=== PATIENT | female | born 1990 | race Caucasian/White ===

== ENCOUNTER → 2017-09-18 12:43 | Outpatient (CLI) | payer SELFPAY ==
[~2017-09-18 12:43] MED LIST: CRYSELLE1 TAB PO; FLAGYL500 MG PO; LEVAQUIN500 MG PO; PHENERGAN25 M1 PO; TYLENOL W/CODEI1 TAB PO; ZOFRAN8 MG PO
[2017-09-20 15:45] VITALS: BMI 26.6
== END | disposition home or self-care (01) ==
LOC: D.CT 12:43
DX: R10.9 Unspecified abdominal pain (principal)

== ENCOUNTER 2017-09-18 15:51 | Emergency (ER) | payer SELFPAY ==
[~2017-09-18] VITALS: Ht 160 cm; Wt 68.2 kg
[2017-09-18 16:21] VITALS: Ht 160 cm; Wt 68.2 kg
[2017-09-18] MEDS ORDERED: CRYSELLE1 TAB PO (16:27)
[2017-09-18] MEDS ORDERED: ZOFRAN8 MG PO (16:27)
[2017-09-18] MEDS ORDERED: FLAGYL500 MG PO (16:27)
[2017-09-18] MEDS ORDERED: TYLENOL W/CODEI1 TAB PO (16:28)
[2017-09-18 16:45] LABS: BASOPHILS 0.3 % (0-2); EOSINOPHILS 0.5 % (0-7); HEMATOCRIT 34.9 % (36.0-48.0); HEMOGLOBIN 11.9 g/dL (12-16); IMMATURE GRANULOCYTES 0.3 % (0-5); LYMPHOCYTES 22.8 % (15-50); MCH 31.6 pg (26.0-34.0); MCHC 34.1 g/dL (31.0-37.0); MCV 92.6 fL (80.0-100.0); MEAN PLATELET VOLUME 10.1 fL (7.4-10.4); MONOCYTES 9.1 % (2-11); PLATELET COUNT 201 10x3/uL (130-400); RBC 3.77 10x6/uL (4.00-5.40); RDW 12.5 % (11.5-14.5); WBC 6.1 10x3/uL (4.8-10.8)
[2017-09-18 17:16] LABS: ALBUMIN 2.7 g/dL (3.4-5.0); ALKALINE PHOSPHATASE 41 U/L (46-116); ALT (SGPT) 14 U/L (10-68); BILIRUBIN - TOTAL 0.36 mg/dL (0.2-1.3); CALC OSMOLALITY 269 mosm/kg (275-300); CARBON DIOXIDE 28.4 mmol/L (21.0-32.0); CHLORIDE - SERUM 102 mmol/L (98-107); CREATININE - SERUM 0.6 mg/dL (0.6-1.3); GLUCOSE 89 mg/dL (74-106); POTASSIUM - SERUM 3.2 mmol/L (3.5-5.1); PROTEIN - SERUM 6.4 g/dL (6.4-8.2); SODIUM 137 mmol/L (136-145); UREA NITROGEN 4 mg/dL (7-18); eGFR NON AFRICAN AMERICAN > 90 mL/min (90-120)
[2017-09-18 17:18] LABS: APPEARANCE CLEAR (CLEAR); COLOR YELLOW (YELLOW)
[2017-09-18 17:19] LABS: BACTERIA FEW /hpf (NONE SEEN); BILIRUBIN NEGATIVE (NEGATIVE); GLUCOSE NEGATIVE (NEGATIVE); KETONE MODERATE mg/dL (NEGATIVE); NITRITE NEGATIVE (NEGATIVE); PROTEIN NEGATIVE (NEGATIVE); RED CELLS - URINE OCC /hpf (0-5); UROBILINOGEN NORMAL (NORMAL); WHITE CELLS - URINE OCC /hpf (0-5)
[2017-09-18 17:28] LABS: AMYLASE - SERUM 34 U/L (25-115); C-REACTIVE PROTEIN 31.7 mg/dL (0.0-0.9); CKMB 1.5 U/L (0.0-3.6); LIPASE 100 U/L (73-393)
[2017-09-18] MEDS ORDERED: LEVAQUIN500 MG PO (20:38)
[2017-09-18] MEDS ORDERED: PHENERGAN25 M1 PO (20:39)
[2017-09-19 05:45] VITALS: BP 112/69
[2017-09-20 15:45] VITALS: Ht 160 cm; Wt 68.2 kg
== END 2017-09-18 22:00 | disposition home or self-care (01) ==
LOC: D.ER 15:51
PROVIDERS: Family Medicine
DX: K52.9 Noninfective gastroenteritis and colitis, unspecified (principal); R19.7 Diarrhea, unspecified; E87.6 Hypokalemia

== ENCOUNTER 2017-09-20 13:56 | Day surgery (SDC) | payer OTHER ==
[~2017-09-20] VITALS: Ht 160 cm; Wt 68.0 kg
--- NOTE | ~2017-09-20 | OP ---
PATIENT NAME: VERA ZAPATA MEDICAL RECORD: [id number] :86 LOCATION:D.OPS ADMISSION DATE: SURGEON: NÉSTOR MEREDITH DO DATE OF OPERATION: 09/20/2017 PROCEDURE: Colonoscopy with biopsy. INDICATION FOR PROCEDURE: Nausea, vomiting, generalized abdominal pain, diarrhea, abdominal imaging that is abnormal, enterocolitis. SCOPE: Olympus video pediatric colonoscope. MEDICATIONS: Propofol 300 mg IV per anesthesia. WITHDRAWAL TIME: 10 minutes. ESTIMATED BLOOD LOSS: Less than 3 mL. COMPLICATIONS: None. FINDINGS: Informed consent was given. The patient was made comfortable with the above medication. After reaching an adequate level of sedation by slow IV push, the patient was placed on her left side. A digital rectal examination was performed and was normal. The endoscope was advanced under direct visualization through the rectum to the terminal ileum. The endoscope was slowly withdrawn and mucosa was carefully examined. The prep quality was excellent. In cecum and ascending colon, there was obvious colitis with visualization of multiple discontinuous superficial ulcerations which ranged in size from 2 mm to 2 cm. The endoscope was advanced into the terminal ileum. In the terminal ileum, there were no obvious ulcerations, but the mucosa did appear somewhat atrophic. Multiple biopsies were taken with cold forceps from the terminal ileum as well as the cecum and the ascending colon. These will be submitted for histopathology. Appearances could be consistent with either Crohn's or infectious etiology. Upon withdrawal further, there was some colitis which advanced into the distal ascending colon, but it stopped by the transverse colon. The remainder of the colon appeared normal. Retroflexion was performed in the rectum with a normal-appearing rectal wall. The endoscope was withdrawn from the patient. The patient tolerated the procedure well and there were no complications. IMPRESSION: 1. Colitis involving cecum and ascending colon. 2. Some atrophy of the villi in the terminal ileum, but no obvious ulcerations. Biopsies are pending from terminal ileum, cecum, and ascending colon. 3. Otherwise, normal colonoscopy. PLAN AND RECOMMENDATIONS: 1. Discharge home when recovery parameters are met. 2. Followup biopsy specimen results. 3. High-fiber diet. 4. Continue current medications including Levaquin and Flagyl for 14 days total. 5. Follow up in GI clinic within a couple of weeks to discuss symptoms and need for further workup if necessary pending results of biopsy specimens. OPERATIVE REPORT [id number] VERA ZAPATA TRANSINT:[id number] Voice Confirmation ID: [id number] DOCUMENT ID: [id number] NÉSTOR MEREDITH DO at 1236 CC: [id number] DICTATION DATE: 09/20/17 165 WARP DRESSER: 09/20/17 180 [facility] 09/20/17 [place] [id number] [place] [id number]
[2017-09-20 14:52] LABS: BASOPHILS 0.7 % (0-2); EOSINOPHILS 0.7 % (0-7); HEMATOCRIT 35.8 % (36.0-48.0); HEMOGLOBIN 12.6 g/dL (12-16); IMMATURE GRANULOCYTES 0.2 % (0-5); LYMPHOCYTES 36.1 % (15-50); MCHC 35.2 g/dL (31.0-37.0); MCV 90.9 fL (80.0-100.0); MEAN PLATELET VOLUME 9.8 fL (7.4-10.4); MONOCYTES 8.7 % (2-11); NEUTROPHILS 53.6 % (40-80); PLATELET COUNT 238 10x3/uL (130-400); RBC 3.94 10x6/uL (4.00-5.40); RDW 12.6 % (11.5-14.5); WBC 4.6 10x3/uL (4.8-10.8)
[2017-09-20 15:14] LABS: CALC OSMOLALITY 273 mosm/kg (275-300); CALCIUM 8.2 mg/dL (8.5-10.1); CARBON DIOXIDE 25.9 mmol/L (21.0-32.0); CHLORIDE - SERUM 103 mmol/L (98-107); CREATININE - SERUM 0.6 mg/dL (0.6-1.3); GLUCOSE 80 mg/dL (74-106); SODIUM 139 mmol/L (136-145); UREA NITROGEN 4 mg/dL (7-18); eGFR NON AFRICAN AMERICAN > 90 mL/min (90-120)
[2017-09-20 15:15] LABS: HCG SERUM NEGATIVE (NEGATIVE)
[2017-09-20 15:17] LABS: POTASSIUM - SERUM 3.8 mmol/L (3.5-5.1)
[2017-09-20 15:45] VITALS: BP 104/64; Ht 160 cm; Wt 68.0 kg
== END 2017-09-20 17:30 | disposition home or self-care (01) ==
LOC: D.OPS 13:56
PROVIDERS: Anesthesiology
DX: K52.9 Noninfective gastroenteritis and colitis, unspecified (principal); Z01.812 Encounter for preprocedural laboratory examination

== ENCOUNTER 2019-01-10 11:08 | Emergency (ER) | payer OTHER ==
[~2019-01-10] VITALS: Ht 160 cm; Wt 70.5 kg
[2019-01-10 11:17] VITALS: Ht 160 cm; Wt 70.5 kg
[2019-01-10 13:05] LABS: APPEARANCE CLEAR (CLEAR); COLOR STRAW (YELLOW)
[2019-01-10 13:06] LABS: BILIRUBIN NEGATIVE (NEGATIVE); GLUCOSE NEGATIVE (NEGATIVE); KETONE NEGATIVE (NEGATIVE); NITRITE NEGATIVE (NEGATIVE); PROTEIN NEGATIVE (NEGATIVE); UROBILINOGEN NORMAL (NORMAL)
[2019-01-10 13:17] LABS: UDS - AMPHET NEGATIVE QUAL (NEGATIVE); UDS - BARB NEGATIVE QUAL (NEGATIVE); UDS - BENZO NEGATIVE QUAL (NEGATIVE); UDS - COCAINE NEGATIVE QUAL (NEGATIVE); UDS - OPIATE NEGATIVE QUAL (NEGATIVE); UDS - PCP NEGATIVE QUAL (NEGATIVE); UDS - THC NEGATIVE QUAL (NEGATIVE)
[2019-01-10 13:19] LABS: HCG URINE NEGATIVE (NEGATIVE)
[2019-01-10 14:07] VITALS: BP 120/67
== END 2019-01-10 14:05 | disposition home or self-care (01) ==
LOC: D.ER 11:08
PROVIDERS: Emergency Medicine
DX: T78.49XA Other allergy, initial encounter (principal); X58.XXXA Exposure to other specified factors, initial encounter